=== PATIENT | male | born 2005 | race Two or more races ===

== ENCOUNTER 2023-05-19 13:35 | Emergency (ER) | payer OTHER ==
[~2023-05-19] VITALS: Ht 175.3 cm; Wt 63.5 kg
== END 2023-05-19 16:33 | disposition home or self-care (01) ==
LOC: EMR PED 13:36 → ER 13:36 → EMR PED 14:38
DX: S61.225A Laceration with foreign body of left ring finger without damage to nail, initial encounter (principal); W26.0XXA Contact with knife, initial encounter; Y93.89 Activity, other specified; Y92.89 Other specified places as the place of occurrence of the external cause